=== PATIENT | male | born 1995 | race Caucasian/White ===

== ENCOUNTER → 2018-06-03 | Outpatient (CLI) | payer BC ==
[2018-06-03 09:32] LABS: EOS # 0.2 (0.04-0.40); EOS % 3.1 % (0.0-4.0); HEMATOCRIT 47.1 % (42.0-52.0); HEMOGLOBIN 16.3 g/dL (13.5-18.0); LYMPH# 2.3 (1.50-4.00); MEAN CELL VOLUME 90 fl (78-100); MEAN CORPUSCULAR HEMOGLOBIN 31 pg (27-31); MEAN CORPUSCULAR HGB CONC 35 g/dL (33-37); MEAN PLATELET VOLUME 10.1 fl (7.4-10.4); MONO # 0.6 (0.20-0.80); NEU # 3.4 (1.40-6.50); PLATELET COUNT 273 K/mm3 (130-400); RED BLOOD COUNT 5.21 M/mm3 (4.20-5.60); RED CELL DISTRIBUTION WIDTH 12.9 % (11.5-14.5); WHITE BLOOD COUNT 6.5 K/mm3 (4.8-10.8)
[2018-06-03 10:01] LABS: ALBUMIN 5.1 g/dL (3.5-5.0); CALCIUM 10.1 mg/dL (8.4-10.2); POTASSIUM 4.2 mmol/L (3.6-5.0); TOTAL PROTEIN 8.4 g/dL (6.3-8.2)
== END ==
LOC: LAB 09:22
PROVIDERS: Nurse Practitioner
DX: R20.2 Paresthesia of skin (principal)

== ENCOUNTER → 2018-06-14 | Outpatient (CLI) | payer BC ==
[2018-06-14 10:12] LABS: ALBUMIN 4.6 g/dL (3.5-5.0); CALCIUM 9.5 mg/dL (8.4-10.2); POTASSIUM 4.3 mmol/L (3.6-5.0); TOTAL BILIRUBIN 0.5 mg/dL (0.2-1.3); TOTAL PROTEIN 7.4 g/dL (6.3-8.2)
[2018-06-15 22:58] LABS: C-REACTIVE PROTEIN XXX
== END ==
LOC: LAB 09:45
PROVIDERS: Internal Medicine
DX: R20.2 Paresthesia of skin (principal); R53.83 Other fatigue; R63.4 Abnormal weight loss; R61 Generalized hyperhidrosis; R35.0 Frequency of micturition

== ENCOUNTER → 2018-07-08 | Outpatient (CLI) | payer BC ==
[2018-07-11 10:11] LABS: METHYLMALONIC ACID, SERUM 0.25 nmol/mL (<=0.40)
== END ==
LOC: LAB 08:26 → EDSTATUS 09:10
PROVIDERS: Internal Medicine
DX: R20.2 Paresthesia of skin (principal); R61 Generalized hyperhidrosis; R63.4 Abnormal weight loss; R53.83 Other fatigue

== ENCOUNTER → 2018-09-02 | Outpatient (CLI) | payer BC | LOC: LAB 14:29 | PROVIDERS: Internal Medicine | DX: R20.2 Paresthesia of skin (principal); R53.83 Other fatigue ==

== ENCOUNTER → 2018-11-18 | Outpatient (CLI) | payer BC | LOC: LAB 14:05 | DX: E53.8 Deficiency of other specified B group vitamins (principal) ==

== ENCOUNTER 2019-04-01 01:42 | Emergency (ER) | payer BC ==
[~2019-04-01] VITALS: Ht 172.7 cm; Wt 88.6 kg
[2019-04-01] MEDS ORDERED: KLONOPIN 0.5MG0.5 MG PO (01:54)
[2019-04-01] MEDS ORDERED: IMITREX100 M1 PO (01:57)
[2019-04-01 02:56] VITALS: BP 138/90
== END 2019-04-01 03:05 | disposition home or self-care (01) ==
LOC: ED 01:42
DX: G43.909 Migraine, unspecified, not intractable, without status migrainosus (principal); F32.9 Major depressive disorder, single episode, unspecified; F41.9 Anxiety disorder, unspecified; F17.210 Nicotine dependence, cigarettes, uncomplicated
CPT/HCPCS: J1885; J2550

== ENCOUNTER → 2019-12-25 | Outpatient (CLI) | payer BC ==
[~2019-12-25] MED LIST: IMITREX100 M1 PO; KLONOPIN 0.5MG0.5 MG PO
== END ==
LOC: RAD 14:30
DX: N50.819 Testicular pain, unspecified (principal)